=== PATIENT | male | born 1955 | race Caucasian/White ===

== ENCOUNTER 2018-10-13 19:31 | Emergency (ER) | payer MEDICARE, BC ==
[~2018-10-13] VITALS: Ht 177.8 cm; Wt 90.9 kg
[~2018-10-13 19:31] MED LIST: FLUOXETINE; PROZAC 10MG10 MG PO; ZYLOPRIM 100MG100 MG PO
[2018-10-13 19:43] VITALS: BP 148/88; TEMP 98.3
[2018-10-13] MEDS ORDERED: CEPHALEXIN500 M1 PO (20:46)
[2018-10-13 21:00] VITALS: PULSE 89
== END 2018-10-13 21:01 | disposition home or self-care (01) ==
LOC: COL.ER 19:31
DX: S61.411A Laceration without foreign body of right hand, initial encounter (principal); F41.9 Anxiety disorder, unspecified; F17.220 Nicotine dependence, chewing tobacco, uncomplicated; W26.8XXA Contact with other sharp object(s), not elsewhere classified, initial encounter; Y92.828 Other wilderness area as the place of occurrence of the external cause

== ENCOUNTER 2018-10-24 07:56 | Emergency (ER) | payer MEDICARE, BC ==
[~2018-10-24 07:56] MED LIST changes: +CEPHALEXIN500 M1 PO
[2018-10-24 08:03] VITALS: BP 135/84; PULSE 78
== END 2018-10-24 08:09 | disposition home or self-care (01) ==
LOC: COL.ER 07:56
DX: S61.411D Laceration without foreign body of right hand, subsequent encounter (principal); X58.XXXD Exposure to other specified factors, subsequent encounter

== ENCOUNTER → 2019-02-22 | Outpatient (CLI) | payer MEDICARE, BC | LOC: COL.RAD 08:01 | DX: F17.219 Nicotine dependence, cigarettes, with unspecified nicotine-induced disorders (principal) ==

== ENCOUNTER → 2020-04-17 | Outpatient (CLI) | payer MEDICARE, BC | LOC: COL.RAD 07:02 | DX: M48.07 Spinal stenosis, lumbosacral region (principal); M47.816 Spondylosis without myelopathy or radiculopathy, lumbar region ==

== ENCOUNTER → 2021-03-06 | Outpatient (CLI) | payer MEDICARE, BC | LOC: COL.RAD 13:16 | DX: Z12.2 Encounter for screening for malignant neoplasm of respiratory organs (principal); Z87.891 Personal history of nicotine dependence ==

== ENCOUNTER → 2023-04-02 | Outpatient (CLI) | payer MEDICARE, BC ==
[~2023-04-02] MED LIST changes: +MEDROL 4MG DOSPA4 MG PO
== END ==
LOC: COL.RAD 09:51
DX: Z12.2 Encounter for screening for malignant neoplasm of respiratory organs (principal); Z87.891 Personal history of nicotine dependence

== ENCOUNTER → 2023-05-20 | Outpatient (CLI) | payer MEDICARE, BC | LOC: MHCPAIN 10:48 | DX: M79.2 Neuralgia and neuritis, unspecified (principal); M51.36 Other intervertebral disc degeneration, lumbar region; M54.50 Low back pain, unspecified; M47.816 Spondylosis without myelopathy or radiculopathy, lumbar region | CPT/HCPCS: G0463 ==

== ENCOUNTER → 2023-07-01 | Outpatient (CLI) | payer MEDICARE, BC | LOC: MHCPAIN 09:51 | DX: M79.2 Neuralgia and neuritis, unspecified (principal); M54.50 Low back pain, unspecified | CPT/HCPCS: G0463 ==

== ENCOUNTER → 2023-12-13 | Outpatient (CLI) | payer MEDICARE, BC | LOC: MHCPAIN 09:03 | DX: M54.50 Low back pain, unspecified (principal); M79.2 Neuralgia and neuritis, unspecified | CPT/HCPCS: G0463 ==

== ENCOUNTER → 2024-01-27 | Outpatient (CLI) | payer MEDICARE, BC ==
[~2024-01-27] MED LIST changes: +Lidocaine PF 1% (10 MG/ML) 5 ML VIAL ONE; +Midazolam 2 MG/2 ML VIAL ONE; +NS 20 ML IV ONE; +Water For Injection,Sterile 20 ML IV ONE; +ceFAZolin 2 G VIAL IV ONE; +fentaNYL 50 MCG/ML 2 ML VIAL ONE
== END ==
LOC: MHCPAIN 12:45
DX: M54.17 Radiculopathy, lumbosacral region (principal); M54.50 Low back pain, unspecified; M79.669 Pain in unspecified lower leg
CPT/HCPCS: J0688; J2250; J3010

== ENCOUNTER → 2024-02-03 | Outpatient (CLI) | payer MEDICARE, BC ==
[~2024-02-03] MED LIST changes: -Lidocaine PF 1% (10 MG/ML) 5 ML VIAL ONE; -Midazolam 2 MG/2 ML VIAL ONE; -NS 20 ML IV ONE; -Water For Injection,Sterile 20 ML IV ONE; -ceFAZolin 2 G VIAL IV ONE; -fentaNYL 50 MCG/ML 2 ML VIAL ONE
== END ==
LOC: MHCPAIN 11:42
DX: M47.817 Spondylosis without myelopathy or radiculopathy, lumbosacral region (principal); M79.2 Neuralgia and neuritis, unspecified; N40.0 Benign prostatic hyperplasia without lower urinary tract symptoms; G96.191 Perineural cyst